=== PATIENT | female | born 1975 | race Caucasian/White ===

== ENCOUNTER 2020-04-29 18:15 | Emergency (ER) | payer OTHER ==
[~2020-04-29] VITALS: Ht 162.6 cm; Wt 92.1 kg
[~2020-04-29 18:15] MED LIST: APAP325 MG PO; ECO81 PO; EXCEDRIN EXTRA1 EACH PO; TOP50 PO; VIS25 PO; ZES10 PO; ZOCOR40 MG PO
[2020-04-29 18:30] VITALS: Ht 162.6 cm; Wt 92.1 kg
[2020-04-29 20:19] VITALS: BP 145/101
== END 2020-04-29 20:19 | disposition home or self-care (01) ==
LOC: ED 18:15
DX: F07.81 Postconcussional syndrome (principal); S16.1XXA Strain of muscle, fascia and tendon at neck level, initial encounter; R11.2 Nausea with vomiting, unspecified; Z90.710 Acquired absence of both cervix and uterus; V49.49XA Driver injured in collision with other motor vehicles in traffic accident, initial encounter; Y93.I9 Activity, other involving external motion; Y92.488 Other paved roadways as the place of occurrence of the external cause; Y99.8 Other external cause status